=== PATIENT | male | born 1965 | race African-American/Black ===

== ENCOUNTER 2018-10-19 08:55 | Emergency (ER) | payer OTHER ==
[~2018-10-19] VITALS: Ht 190.5 cm; Wt 119.3 kg
[~2018-10-19 08:55] MED LIST: CIPR500T94 PO; TAMS0.4C97 PO
[2018-10-19] MEDS ORDERED: IV NORMAL SALINE 1000ML BAG 1,000 ML IV ONE (09:15)
[2018-10-19] MEDS ORDERED: METOPROLOL TARTRATE 5 MG/5 ML VIAL. IVP ONE (09:15)
[2018-10-19] MEDS ORDERED: fentaNYL PF VIAL 100 MCG/2 ML VIAL IV ONE (09:15)
[2018-10-19] MEDS ORDERED: ONDANSETRON PF 4 MG/2 ML VIAL. IV ONE (09:15)
[2018-10-19 09:20] LABS: BASO # 0.1 x10^3/uL (0.0-0.2); BASO % 1 % (0-3); EOS % 1 % (0-3); HEMOGLOBIN 16.1 g/dL (13.0-17.5); LYMPH % 12 % (24-48); MEAN CORPUSCULAR HEMOGLOBIN 29 pg (25-35); MEAN CORPUSCULAR HGB CONC 33 g/dL (31-37); MEAN CORPUSCULAR VOLUME 87 fL (79-100); MONO # 0.5 x10^3/uL (0.0-1.1); MONO % 7 % (0-9); NEUT # 6.6 x10^3uL (1.8-7.7); NEUT % 80 % (31-73); PLATELET COUNT 190 x10^3/uL (140-400); RED BLOOD COUNT 5.64 x10^6/uL (4.30-5.70); RED CELL DISTRIBUTION WIDTH 14.5 % (11.5-14.5); WHITE BLOOD COUNT 8.3 x10^3/uL (4.0-11.0)
[2018-10-19 09:37] LABS: CALCIUM 9.4 mg/dL (8.5-10.1); CREATININE 1.3 mg/dL (0.7-1.3); GFR 69.6; PLT ESTIMATE ADEQUATE (ADEQUATE); POTASSIUM 3.3 mmol/L (3.5-5.1)
[2018-10-19 09:43] LABS: ALBUMIN 4.5 g/dL (3.4-5.0); ALBUMIN/GLOBULIN RATIO 1.2 (1.0-1.7); TOTAL BILIRUBIN 0.8 mg/dL (0.2-1.0); TOTAL PROTEIN 8.4 g/dL (6.4-8.2)
[2018-10-19] MEDS ORDERED: IOHEXOL 300 MG/ML 100ML VIAL. IV ONE (09:45)
[2018-10-19] MEDS ORDERED: CONTRAST GIVEN. MC PRN (10:00)
[2018-10-19 10:02] LABS: BILIRUBIN,URINE NEGATIVE (NEG); CLARITY,URINE CLEAR; COLOR,URINE YELLOW; NITRITE,URINE NEGATIVE (NEG); PROTEIN,URINE 30 mg/dL (NEG-TRACE); UROBILINOGEN,URINE 0.2 mg/dL (0.2 mg/dL)
[2018-10-19 10:06] LABS: SQUAMOUS EPITHELIAL CELL,UR MOD /LPF
[2018-10-19 10:07] LABS: RBC,URINE 20-40 /HPF (0-2)
[2018-10-19 10:08] LABS: BACTERIA,URINE FEW /HPF (0-FEW)
[2018-10-19 10:09] LABS: BARBITURATES NEG (NEG); BENZODIAZEPINES NEG (NEG); CANNABINOIDS NEG (NEG); COCAINE POS (NEG); METHADONE NEG (NEG); OPIATES NEG (NEG); PHENCYCLIDINE NEG (NEG)
[2018-10-19 10:23] LABS: AMPHETAMINE/METHAMPHETAMINE NEG (NEG)
--- NOTE | 2018-10-19 10:23 | RAD ---
Examination: CT ABD PELV W/ IV CONTRST ONLY History: pelvic pain, hx of renal stone
IV OMNI 300 75 MLS
PREVIOUS Comparison/Correlation: 06/16/2018 CT abdomen and pelvis without contrast Findings: Axial images of the abdomen and pelvis were obtained following IV contrast. Sagittal and and coronal reformatted images were provided. Visualized lung bases are clear. Liver is normal. Small hiatal hernia noted. Spleen is unremarkable. Gallbladder fossa is unremarkable. Pancreas is normal. Adrenal glands are normal. Right renal inferior pole 0.3 cm diameter calculus noted. Calculus involving the dependent aspect of the right renal pelvis is also present measuring up to 0.5 cm diameter. Minimal fullness of the right and left renal pelvis noted. Right ureter is unremarkable. There is a 1.2 cm diameter left renal lower pole calculus. Punctate smaller calculus is suggested medial to it along the superior margin. Right lower pole calyceal calculus measuring 0.7 cm diameter is present. Punctate left renal inferior pole calyceal calculi are present. Left renal low-attenuation lesions which probably represents cysts are present. No extraluminal gas. Appendix is normal. No bowel obstruction. Urinary bladder is unremarkable. Right hip joint prosthesis is present. Left hip joint space narrowing is present. Moderate to severe disc space narrowing from L3 to S1 is present. This is most notable at L5-S1. Vacuum phenomenon noted. Significant endplate spurring with neural foraminal bony encroachment is present especially at L5-S1 and also L4-5. Bone islands at S2 noted. No enlarged abdominal or pelvic lymph nodes. Mild prostatomegaly noted. Impression: Bilateral nonobstructive renal calculi. A calculus previously seen at the right renal inferior pole calyces is now present at the right renal pelvis dependent aspect. Severe low lumbar spine degenerative changes. Small hiatal hernia. Prostatomegaly. PQRS Compliance Statement: One or more of the following individualized dose reduction techniques were utilized for this examination: 1. Automated exposure control 2. Adjustment of the mA and/or kV according to patient size 3. Use of iterative reconstruction technique Electronically signed by: Manuel Dorsey MD (10/19/2018 10:20 AM) [facility]
--- NOTE | 2018-10-19 10:46 | PHYS DOC ---
Past Medical History Past Medical History: Kidney Stone Past Surgical History: No Surgical History, Tonsillectomy Additional Past Surgical Histo: Lt. Knee Alcohol Use: None Drug Use: Marijuana Adult General Chief Complaint Chief Complaint: FLANK PAIN HPI HPI Patient is a 53 year old flank pain with a history of kidney stones. The patient states the pain has been increasing today and he noted blood in his urine. He denies fever. Review of Systems Review of Systems Constitutional: Denies fever or chills [] Respiratory: Denies cough or shortness of breath [] Cardiovascular: No additional information not addressed in HPI [] GI: Denies abdominal pain, nausea, vomiting, bloody stools or diarrhea [] : See HPI Musculoskeletal: Denies back pain or joint pain [] Integument: Denies rash or skin lesions [] Neurologic: Denies headache, focal weakness or sensory changes [] Endocrine: Denies polyuria or polydipsia [] All other systems were reviewed and found to be within normal limits, except as documented in this note. Current Medications Current Medications Current Medications Medications (Trade) Dose Ordered Sig/Perez Start Time Stop Time Status Last Admin Dose Admin Fentanyl Citrate (Fentanyl 2ml Vial) 75 mcg 1X ONCE 10/19/18 09:15 10/19/18 09:16 DC 10/19/18 09:23 75 MCG Info (CONTRAST GIVEN -- Rx MONITORING) 1 each PRN DAILY PRN 10/19/18 10:00 10/19/18 11:09 DC Iohexol (Omnipaque 300 Mg/ml) 75 ml 1X ONCE 10/19/18 09:45 10/19/18 09:46 DC Metoprolol Tartrate (Lopressor Vial) 5 mg 1X ONCE 10/19/18 09:15 10/19/18 09:16 DC 10/19/18 09:24 5 MG Ondansetron HCl (Zofran) 4 mg 1X ONCE 10/19/18 09:15 10/19/18 09:16 DC 10/19/18 09:24 4 MG Sodium Chloride 1,000 ml @ 1,000 mls/hr 1X ONCE 10/19/18 09:15 10/19/18 10:14 DC 10/19/18 09:23 1,000 MLS/HR Allergies Allergies Allergies Coded Allergies Type Severity Reaction Last Updated Verified No Known Drug Allergies 11/28/14 No Physical Exam Physical Exam Constitutional: Well developed, well nourished, no acute distress, non-toxic appearance. [] Cardiovascular:Heart rate regular rhythm, no murmur [] Lungs & Thorax: Bilateral breath sounds clear to auscultation [] Abdomen: Bowel sounds normal, soft, no tenderness, no masses, no pulsatile masses. [] Skin: Warm, dry, no erythema, no rash. [] Back: No tenderness, bilateral flank tenderness. [] Extremities: No tenderness, no cyanosis, no clubbing, ROM intact, no edema. [] Neurologic: Alert and oriented X 3, normal motor function, normal sensory function, no focal deficits noted. [] Psychologic: Affect normal, judgement normal, mood normal. [] Current Patient Data Vital Signs Lab Values Laboratory Tests Test 10/19/18 09:10 10/19/18 10:00 White Blood Count 8.3 x10^3/uL (4.0-11.0) Red Blood Count 5.64 x10^6/uL (4.30-5.70) Hemoglobin 16.1 g/dL (13.0-17.5) Hematocrit 49.0 % (39.0-53.0) Mean Corpuscular Volume 87 fL (79-100) Mean Corpuscular Hemoglobin 29 pg (25-35) Mean Corpuscular Hemoglobin Concent 33 g/dL (31-37) Red Cell Distribution Width 14.5 % (11.5-14.5) Platelet Count 190 x10^3/uL (140-400) Neutrophils (%) (Auto) 80 % (31-73) H Lymphocytes (%) (Auto) 12 % (24-48) L Monocytes (%) (Auto) 7 % (0-9) Eosinophils (%) (Auto) 1 % (0-3) Basophils (%) (Auto) 1 % (0-3) Neutrophils # (Auto) 6.6 x10^3uL (1.8-7.7) Lymphocytes # (Auto) 1.0 x10^3/uL (1.0-4.8) Monocytes # (Auto) 0.5 x10^3/uL (0.0-1.1) Eosinophils # (Auto) 0.0 x10^3/uL (0.0-0.7) Basophils # (Auto) 0.1 x10^3/uL (0.0-0.2) Platelet Estimate Adequate (ADEQUATE) Large Platelets Present Giant Platelets Present Sodium Level 141 mmol/L (136-145) Potassium Level 3.3 mmol/L (3.5-5.1) L Chloride Level 102 mmol/L (98-107) Carbon Dioxide Level 27 mmol/L (21-32) Anion Gap 12 (6-14) Blood Urea Nitrogen 14 mg/dL (8-26) Creatinine 1.3 mg/dL (0.7-1.3) Estimated GFR (Cockcroft-Gault) 69.6 BUN/Creatinine Ratio 11 (6-20) Glucose Level 134 mg/dL (70-99) H Calcium Level 9.4 mg/dL (8.5-10.1) Total Bilirubin 0.8 mg/dL (0.2-1.0) Aspartate Amino Transferase (AST) 19 U/L (15-37) Alanine Aminotransferase (ALT) 27 U/L (16-63) Alkaline Phosphatase 95 U/L (46-116) Troponin I Quantitative < 0.017 ng/mL (0.000-0.055) Total Protein 8.4 g/dL (6.4-8.2) H Albumin 4.5 g/dL (3.4-5.0) Albumin/Globulin Ratio 1.2 (1.0-1.7) Urine Collection Type Unknown Urine Color Yellow Urine Clarity Clear Urine pH 7.0 Urine Specific [place] 1.020 Urine Protein 30 mg/dL (NEG-TRACE) Urine Glucose (UA) 250 mg/dL (NEG) Urine Ketones (Stick) Negative mg/dL (NEG) Urine Blood Moderate (NEG) Urine Nitrite Negative (NEG) Urine Bilirubin Negative (NEG) Urine Urobilinogen Dipstick 0.2 mg/dL (0.2 mg/dL) Urine Leukocyte Esterase Negative (NEG) Urine RBC 20-40 /HPF (0-2) Urine WBC 1-4 /HPF (0-4) Urine Squamous Epithelial Cells Mod /LPF Urine Bacteria Few /HPF (0-FEW) Urine Mucus Mod /LPF Urine Opiates Screen Neg (NEG) Urine Methadone Screen Neg (NEG) Urine Barbiturates Neg (NEG) Urine Phencyclidine Screen Neg (NEG) Urine Amphetamine/Methamphetamine Neg (NEG) Urine Benzodiazepines Screen Neg (NEG) Urine Cocaine Screen Pos (NEG) Urine Cannabinoids Screen Neg (NEG) Urine Ethyl Alcohol Neg (NEG) Laboratory Tests 10/19/18 09:10 Laboratory Tests 10/19/18 09:10 EKG EKG [] Radiology/Procedures Radiology/Procedures [][facility] [address] [place] [address] IMAGING REPORT Signed PATIENT: YONAS BORJAS ACCOUNT: [id number] : 1965 LOCATION: ER AGE: 53 SEX: M EXAM STATUS: REG ER ORD. PHYSICIAN: ARCENIO CORRALES PROCUREMENT SERVICES MANAGER REASON: pelvic pain, hx of renal stone PROCEDURE: CT ABD PELV W/ IV CONTRST ONLY Examination: CT ABD PELV W/ IV CONTRST ONLY History: pelvic pain, hx of renal stone
IV OMNI 300 75 MLS
PREVIOUS Comparison/Correlation: 06/16/2018 CT abdomen and pelvis without contrast Findings: Axial images of the abdomen and pelvis were obtained following IV contrast. Sagittal and and coronal reformatted images were provided. Visualized lung bases are clear. Liver is normal. Small hiatal hernia noted. Spleen is unremarkable. Gallbladder fossa is unremarkable. Pancreas is normal. Adrenal glands are normal. Right renal inferior pole 0.3 cm diameter calculus noted. Calculus involving the dependent aspect of the right renal pelvis is also present measuring up to 0.5 cm diameter. Minimal fullness of the right and left renal pelvis noted. Right ureter is unremarkable. There is a 1.2 cm diameter left renal lower pole calculus. Punctate smaller calculus is suggested medial to it along the superior margin. Right lower pole calyceal calculus measuring 0.7 cm diameter is present. Punctate left renal inferior pole calyceal calculi are present. Left renal low-attenuation lesions which probably represents cysts are present. No extraluminal gas. Appendix is normal. No bowel obstruction. Urinary bladder is unremarkable. Right hip joint prosthesis is present. Left hip joint space narrowing is present. Moderate to severe disc space narrowing from L3 to S1 is present. This is most notable at L5-S1. Vacuum phenomenon noted. Significant endplate spurring with neural foraminal bony encroachment is present especially at L5-S1 and also L4-5. Bone islands at S2 noted. No enlarged abdominal or pelvic lymph nodes. Mild prostatomegaly noted. Impression: Bilateral nonobstructive renal calculi. A calculus previously seen at the right renal inferior pole calyces is now present at the right renal pelvis dependent aspect. Severe low lumbar spine degenerative changes. Small hiatal hernia. Prostatomegaly. PQRS Compliance Statement: One or more of the following individualized dose reduction techniques were utilized for this examination: 1. Automated exposure control 2. Adjustment of the mA and/or kV according to patient size 3. Use of iterative reconstruction technique Electronically signed by: Manuel De La Rosa MD (10/19/2018 10:20 AM) [facility] DICTATED and SIGNED BY: MANUEL DE LA ROSA MD DATE: 10/19/18 1020 Course & Med Decision Making Course & Med Decision Making Pertinent Labs and Imaging studies reviewed. (See chart for details) []The patient was given fentanyl, metoprolol. NS and toradol for symptom control. He declined admission. He is to follow up with urology. Dragon Disclaimer Dragon Disclaimer This electronic medical record was generated, in whole or in part, using a voice recognition dictation system. Departure Departure Impression: Primary Impression: Renal calculus or stone Additional Impression: Hematuria, microscopic Disposition: 01 HOME, SELF-CARE Condition: STABLE Referrals: SONIYA CHAIREZ MD (PCP) NUSRAT SMITH MD Patient Instructions: Hematuria, Adult, Kidney Stones Additional Instructions: Increase fluids and rest. Follow-up with Dr. Smith at a first available appointment to evaluate for your hematuria. Problem Qualifiers ARCENIO CORRALES APRN Oct 19, 2018 10:46
[2018-10-19 11:09] VITALS: BP 190/98
--- NOTE | 2018-10-20 07:46 | EKG ---
[facility] [address] [place] [address] Test Date: 2018-10-19 Test Time: 09:07:08 Pat Name: YONAS BORJAS Department: Room: Gender: Male Director Of Math: : 1965 Requested By: ARCENIO CORRALES Order Number: [id number] Reading MD: Rick Callahan MD Measurements Intervals [place] Rate: 67 P: 2 PA: 170 QRS: -24 QRSD: 100 T: 18 QT: 388 QTc: 412 Interpretive Statements SINUS RHYTHM CONSIDER PRIOR ANTEROSEPTAL INFARCT Electronically Signed On 10-20-2018 10:54:23 CDT by Rick Callahan MD
== END 2018-10-19 11:09 | disposition home or self-care (01) ==
LOC: ER 08:55
DX: R31.29 Other microscopic hematuria (principal); R11.2 Nausea with vomiting, unspecified; Z87.442 Personal history of urinary calculi
CPT/HCPCS: 36415; 74177; 80053; 80307; 81001; 84484; 85025; 93005; 96361; 96374; 96375; 99284; J2405; J3010; J3490; J7030

== ENCOUNTER 2019-09-17 11:21 | Emergency (ER) | payer MEDICAID, OTHER ==
[~2019-09-17] VITALS: Ht 190.5 cm; Wt 100.0 kg
[2019-09-17 11:59] VITALS: BP 162/98
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
--- NOTE | 2019-09-17 12:41 | RAD ---
Examination: RIBS RIGHT AND PA CHEST History: Fall, anterior chest wall pain. Comparison/Correlation: None Findings: PA view of the chest was obtained. Additional 3 images of the right ribs provided. Heart size is normal. No pneumothorax. No pleural or effusion suspected. Right ribs are intact with no fracture or bony destructive findings. Right hilar calcified lymph node is suggested. Few calcific densities involving the right upper quadrant are present corresponding to hepatic calcifications on CT exam performed 10/19/2018. Impression: No infiltrate. Right ribs are intact. Electronically signed by: Manuel Dorsey MD (09/17/2019 12:39 PM) [id number]
[2019-09-17] MEDS ORDERED: DICL75TA PO (12:59)
[2019-09-17] MEDS ORDERED: PRED50TA PO (12:59)
== END 2019-09-17 13:40 | disposition home or self-care (01) ==
LOC: ER 11:21
DX: S20.211A Contusion of right front wall of thorax, initial encounter (principal); Z87.442 Personal history of urinary calculi; W18.39XA Other fall on same level, initial encounter; Y93.89 Activity, other specified; Y92.89 Other specified places as the place of occurrence of the external cause; Y99.8 Other external cause status
CPT/HCPCS: 71101; 99283